=== PATIENT | female | born 1995 | race African-American/Black ===

== ENCOUNTER 2019-05-07 12:11 | Emergency (ER) | payer MEDICAID, OTHER ==
[~2019-05-07] VITALS: Ht 157.5 cm; Wt 96.0 kg
[~2019-05-07 12:11] MED LIST: ALBU18HF2 IH; FLUT1DIS3 IH
[2019-05-07] MEDS ORDERED: ONDANSETRON HCL 4MG/2ML INJ IV ONE (17:15)
[2019-05-07 17:23] LABS: CLARITY URINE CLEAR (CLEAR); COLOR URINE YELLOW (YELLOW); KETONES URINE NEGATIVE (NEGATIVE); LEUKOCYTE ESTERASE URINE NEGATIVE (NEGATIVE); NITRITE URINE NEGATIVE (NEGATIVE); OCCULT BLOOD URINE NEGATIVE (NEGATIVE); PROTEIN URINE NEGATIVE (NEGATIVE); SPECIFIC GRAVITY URINE 1.024 (1.005-1.030)
[2019-05-07 18:16] LABS: CHLORIDE 105 mEq/L (98-107)
[2019-05-07 18:17] LABS: HCG SCREEN NEGATIVE
[2019-05-07 18:21] LABS: BASOPHILS % 0.4 % (0.0-2.0); EOSINOPHILS % 3.2 % (0.0-5.0); HEMATOCRIT. 38.8 % (36.0-48.0); HEMOGLOBIN. 13.2 g/dL (12.0-16.0); LYMPHOCYTES % 28.3 % (20.0-50.0); MEAN CORPUSCULAR HEMOGLOBIN 29.1 pg (28.0-32.0); MEAN CORPUSCULAR VOLUME 85.4 fL (81.0-99.0); MONOCYTES % 4.7 % (2.0-8.0); NEUTROPHILS % 63.4 % (40.0-76.0); PLATELET 358 x1000/uL (130-400); RED BLOOD CELL COUNT 4.54 mill/uL (4.2-5.4); RED CELL DISTRIBUTION WIDTH 13.8 % (11.6-14.6)
[2019-05-07 19:15] VITALS: BP 119/71
== END 2019-05-07 19:45 | disposition home or self-care (01) ==
LOC: ER 12:11
DX: R11.2 Nausea with vomiting, unspecified (principal); J45.909 Unspecified asthma, uncomplicated; Z88.0 Allergy status to penicillin
CPT/HCPCS: 36415; 80053; 81003; 81025; 83690; 84703; 85025; 96374; 99283; J2405

== ENCOUNTER 2023-11-09 22:33 | Emergency (ER) | payer MEDICAID ==
[~2023-11-09] VITALS: Ht 157.5 cm; Wt 110.0 kg
[~2023-11-09 22:33] MED LIST changes: +IBUP-2029 MT; +METH-653 MT
[2023-11-09 23:10] VITALS: PULSE 125; RESP 26; O2SAT 97
[2023-11-09] MEDS: IPRATROPIUM BROMIDE (0.02%) 0.5MG/2.5ML NEB HHN STA (23:10)
[2023-11-09] MEDS: ALBUTEROL (0.083%) 2.5MG/3ML NEB HHN STA (23:10)
[2023-11-09 23:33] LABS: BASOPHILS % 0.6 % (0.0-2.0); EOSINOPHILS % 7.9 % (0.0-5.0); HEMATOCRIT. 37.1 % (36.0-48.0); HEMOGLOBIN. 12.6 g/dL (12.0-16.0); LYMPHOCYTES % 13.5 % (20.0-50.0); MEAN CORPUSCULAR HEMOGLOBIN 29.5 pg (28.0-32.0); MEAN CORPUSCULAR HGB CONC 33.9 g/dL (31.0-37.0); MEAN CORPUSCULAR VOLUME 87.1 fL (81.0-99.0); MEAN PLATELET VOLUME 8.4 fl (7.4-10.4); MONOCYTES % 8.2 % (2.0-8.0); NEUTROPHILS % 69.8 % (40.0-76.0); PLATELET 341 x1000/uL (130-400); RED BLOOD CELL COUNT 4.26 mill/uL (4.2-5.4); RED CELL DISTRIBUTION WIDTH 14.3 % (11.6-14.6); WHITE BLOOD COUNT 10.8 x1000/uL (4.5-11.0)
[2023-11-09 23:50] LABS: PARTIAL THROMBOPLASTIN TIME 29.4 sec (23.4-31.0); PROTHROMBIN TIME 10.7 sec (9.6-11.0)
[2023-11-09 23:51] LABS: HCG SCREEN NEGATIVE
[2023-11-09 23:52] LABS: CARBON DIOXIDE 26 mEq/L (21-32); CHLORIDE 106 mEq/L (98-107); POTASSIUM 4.1 mEq/L (3.5-5.1); SODIUM 139 mEq/L (136-145)
[2023-11-09 23:53] LABS: CALCIUM 9.4 mg/dL (8.7-10.4)
[2023-11-09 23:58] LABS: CREATININE 0.9 mg/dL (0.6-1.0); GLUCOSE 106 mg/dL (70-105); UREA NITROGEN BLOOD 8 mg/dL (9-23)
[2023-11-10] LABS: TROPONIN I HIGH SENSITIVITY < 4 ng/L (3.0-34)
[2023-11-10 00:01] LABS: ETHANOL BLOOD < 10 mg/dL (<10)
[2023-11-10] MEDS: MAGNESIUM 2 G PREMIX 50 ML IV ONE (00:04)
[2023-11-10] MEDS: METHYLPREDNISOLONE SOD SUCC 125MG/2ML (ACT-O-VIAL) IV STA (00:04)
[2023-11-10] MEDS ORDERED: ALBUTEROL (0.083%) 2.5MG/3ML NEB HHN ONE (02:15)
[2023-11-10] MEDS ORDERED: IPRATROPIUM BROMIDE (0.02%) 0.5MG/2.5ML NEB HHN ONE (02:15)
[2023-11-10 03:58] VITALS: TEMP 98.1
[2023-11-10 04:00] VITALS: BP 125/71; O2SAT 95
[2023-11-10] MEDS: ALBUTEROL (0.083%) 2.5MG/3ML NEB HHN NR (04:05)
[2023-11-10] MEDS: IPRATROPIUM BROMIDE (0.02%) 0.5MG/2.5ML NEB HHN NR (04:05)
[2023-11-10 04:08] VITALS: PULSE 102; RESP 20; O2SAT 96
== END 2023-11-10 05:00 | disposition left against medical advice (07) ==
LOC: ER 22:33 → EDBEDREQTM 11-10 00:34 → EDBEDREQ 11-10 00:34 → EDBEDREQSVC 11-10 00:34 → EDBEDREQ 11-10 03:19 → EDBEDREQTM 11-10 03:19 → ER 11-10 05:00
DX: J45.902 Unspecified asthma with status asthmaticus (principal); Z98.890 Other specified postprocedural states; Z88.0 Allergy status to penicillin; Z79.899 Other long term (current) drug therapy
CPT/HCPCS: 80048; 80320; 84703; 83880; 85025; 85610; 85730; 84484; 36415; 71045; 93005; 99291; 94644; 96365; 96375; J3475; J2919; Z7610 ×5; 94640; G0480

== ENCOUNTER 2024-10-01 21:47 | Emergency (ER) | payer MEDICAID ==
[~2024-10-01] VITALS: Ht 162.6 cm; Wt 109.0 kg
[2024-10-01] MEDS ORDERED: ALBUTEROL (0.083%) 2.5MG/3ML NEB HHN STA (23:10)
[2024-10-01 23:14] LABS: BASOPHILS % 1.0 % (0.0-2.0); EOSINOPHILS % 5.0 % (0.0-5.0); HEMATOCRIT. 39.0 % (36.0-48.0); HEMOGLOBIN. 12.7 g/dL (12.0-16.0); LYMPHOCYTES % 20.6 % (20.0-50.0); MEAN PLATELET VOLUME 8.1 fl (7.4-10.4); MONOCYTES % 5.2 % (2.0-8.0); NEUTROPHILS % 68.2 % (40.0-76.0); PLATELET 369 x1000/uL (130-400); RED BLOOD CELL COUNT 4.55 mill/uL (4.2-5.4); RED CELL DISTRIBUTION WIDTH 14.5 % (11.6-14.6)
[2024-10-01] MEDS: PREDNISONE 20MG TABLET PO STA (23:23)
[2024-10-01 23:31] LABS: CREATININE 0.8 mg/dL (0.6-1.0); UREA NITROGEN BLOOD 7 mg/dL (9-23)
[2024-10-01] MEDS: ALBUTEROL (0.083%) 2.5MG/3ML NEB HHN NR (23:31)
[2024-10-01 23:32] LABS: TROPONIN I HIGH SENSITIVITY < 4 ng/L (3.0-34)
[2024-10-01] MEDS: IPRATROPIUM BROMIDE (0.02%) 0.5MG/2.5ML NEB HHN STA (23:32)
[2024-10-01 23:33] VITALS: PULSE 109; RESP 20; O2SAT 97
[2024-10-02 00:52] VITALS: PULSE 114; RESP 18; O2SAT 97
[2024-10-02] MEDS: ALBUTEROL (0.083%) 2.5MG/3ML NEB HHN ONE (00:52)
[2024-10-02 01:11] LABS: HCG SCREEN NEGATIVE
[2024-10-02] MEDS ORDERED: ALBU90AE INH (01:49)
[2024-10-02] MEDS ORDERED: P20 MT (01:49)
[2024-10-02 02:00] VITALS: BP 145/100; PULSE 100; RESP 18; TEMP 36.7; O2SAT 96
== END 2024-10-02 02:06 | disposition home or self-care (01) ==
LOC: ER 21:47
DX: J45.901 Unspecified asthma with (acute) exacerbation (principal); I10 Essential (primary) hypertension; Z88.0 Allergy status to penicillin
CPT/HCPCS: 80048; 85025; 84484; 36415; 71045; 99284; 81025; 84703; 94640; J7512; Z7610 ×3; 94070; 94664; 98960